=== PATIENT | female | born 1990 | race American Indian/Alaskan Native ===

== ENCOUNTER 2016-12-29 03:01 | Observation (INO) | payer OTHER ==
[2016-12-29] MEDS ORDERED: NACL 0.9% 1000 ML 1,000 ML IV ONE (04:05)
[2016-12-29 04:33] LABS: Basophils % (Auto) 0.6 % (0.0-1.8); Eosinophils % (Auto) 2.5 % (0.0-4.3); Hematocrit 29.6 % (30.3-42.9); Hemoglobin 9.6 gm/dl (10.1-14.3); Mean Corpuscular HGB Conc 32 % (30-34); Mean Corpuscular Hemoglobin 30 pg (28-32); Mean Corpuscular Volume 91 fl (79-97); Platelet Count 293 K/mm3 (140-440); Red Blood Count 3.26 M/mm3 (3.65-5.03); Red Cell Distribution Width 14.5 % (13.2-15.2); White Blood Count 11.5 K/mm3 (4.5-11.0)
[2016-12-29 04:42] LABS: Anion Gap 23 mmol/L; Blood Urea Nitrogen 2 mg/dL (7-17); Calcium 7.5 mg/dL (8.4-10.2); Carbon Dioxide 16 mmol/L (22-30); Chloride 101.7 mmol/L (98-107); Glucose 200 mg/dL (65-100); Potassium 3.3 mmol/L (3.6-5.0); Sodium 137 mmol/L (137-145)
--- NOTE | 2016-12-29 06:01 | Ultrasound Report ---
FINAL REPORT PROCEDURE: US OB TRANSVAGINAL WITH DOPPLER TECHNIQUE: Real-time transvaginal sonography of the uterus, placenta, amniotic fluid, adnexa, and fetus was performed with image documentation. Measurements were obtained to determine age/size. M-mode Doppler was used to document heartbeat. CPT 56740 HISTORY: vaginal bleeding/miscarriage, passing tissue COMPARISON: There are no older studies to compare. FINDINGS: Uterus measures 10.0 x 4.5 centimeters. There is no ultrasound evidence of an intrauterine or intrauterine gestational sac at this time. The endometrium is somewhat thick measuring 2.5 centimeters. This is nonspecific. It could be due to hemorrhage or endometrial reaction or retained products conception. The right ovary measures 2.2 x 1.3 x 1.9 centimeter. The left ovary measures 2 point by 1.8 x 1.4 centimeters. Both ovaries show no ultrasound abnormality IMPRESSION: 1. There is no ultrasound evidence of an intrauterine or intrauterine gestational sac at this time. The endometrium is thick measuring 2.5 centimeters. This is nonspecific but could be due to endometrial reaction or endometrial hemorrhage or retained products of conception. It should also be noted that if it is early enough, it is possible there could be a viable intrauterine that is too early to definitely detect by ultrasound. Therefore if the test remains persistently positive, follow-up ultrasound exams recommended to determine if there is a developing viable intrauterine 2. The ovaries demonstrate no ultrasound abnormality.
--- NOTE | 2016-12-29 06:08 | Ultrasound Report ---
FINAL REPORT PROCEDURE: US OB \T\lt; = 14 WEEKS FETUS TRANSABDOMINAL WITH DOPPLER TECHNIQUE: Real-time transabdominal sonography of the uterus, placenta, amniotic fluid, adnexa, and fetus was performed with image documentation. Measurements were obtained to determine age/size. M-mode Doppler was used to document heartbeat. CPT 87839 HISTORY: vaginal bleeding/miscarriage, passing tissue COMPARISON: No prior studies are available for comparison. FINDINGS: Uterus measures 10.0 x 4.5 centimeters. There is no ultrasound evidence of an intrauterine or intrauterine gestational sac at this time. The endometrium is somewhat thick measuring 2.5 centimeters. This is nonspecific. It could be due to hemorrhage or endometrial reaction or retained products conception. The right ovary measures 2.2 x 1.3 x 1.9 centimeter. The left ovary measures 2 point by 1.8 x 1.4 centimeters. Both ovaries show no ultrasound abnormality IMPRESSION: 1. There is no ultrasound evidence of an intrauterine or intrauterine gestational sac at this time. The endometrium is thick measuring 2.5 centimeters. This is nonspecific but could be due to endometrial reaction or endometrial hemorrhage or retained products of conception. It should also be noted that if it is early enough, it is possible there could be a viable intrauterine that is too early to definitely detect by ultrasound. Therefore if the test remains persistently positive, follow-up ultrasound exams recommended to determine if there is a developing viable intrauterine 2. The ovaries demonstrate no ultrasound abnormality.
[2016-12-29] MEDS ORDERED: NACL 0.9% 1000 ML 1,000 ML ONE (07:17)
[2016-12-29] MEDS ORDERED: NACL 0.9% 1000 ML IV ONE (07:19)
--- NOTE | 2016-12-29 07:22 | Emergency Department Report ---
HPI - General Chief Complaint: Vaginal Bleeding Time Seen by Provider: 12/29/16 06:12 - HPI HPI: Chief complaint: Vaginal bleeding and abdominal cramping HPI: Patient states she began bleeding last night prior to admission and used 6 pads in 3 hours patient complains of lightheadedness on standing but has not passed out. Patient states she bled last week and went to a clinic and had an ultrasound that showed demise at 7 weeks. This is patient's first . Mode of arrival: [private car] Source: [Patient] Began: Prior to admission Duration: Continuous Context: See above Quality: Cramping Severity: 4 out of 10 but currently has improved Improved with: Nothing Worsened with: Lightheadedness and is worse on standing Associated signs and symptoms: No nausea vomiting fever ED Past Medical Hx - Past Medical History Previous Medical History?: No - Surgical History Past Surgical History?: No - Social History Smoking Status: Never Smoker ED Review of Systems ROS: Stated complaint: VAGINAL BLEEDING/7WKS PREG Other details as noted in HPI ROS Constitutional: No fever ENT: No uri symptoms Cardiovascular: No chest pain Respiratory: No sob or cough GI: No nausea vomiting or diarrhea : No dysuria frequency or urgency, Skin: No rash Neuro: No focal weakness or numbness Psych: No depression Urban/lymph: No edema Physical Exam - Physical Exam Vital Signs: Vital Signs 12/29/16 03:16 Temperature 98.9 F Pulse Rate 111 H Respiratory 18 Rate Blood Pressure 129/98 [Right] O2 Sat by Pulse 100 Oximetry Physical Exam: GENERAL: The patient is well-developed well-nourished . HEENT: Normocephalic. Atraumatic. Extraocular motions are intact. Patient has moist mucous membranes. NECK: Supple. No meningitic signs are noted. There is no adenopathy noted. CHEST/LUNGS: Clear to auscultation. There is no respiratory distress noted. HEART/CARDIOVASCULAR: Regular. There is no tachycardia. There is no gallop rub or murmur. ABDOMEN: Abdomen is soft, nontender. Patient has normal bowel sounds. There is no abdominal distention. : PACs in cervical os removed and bleeding since seems to have slowed. SKIN: There is no rash. There is no edema. There is no diaphoresis. NEURO: The patient is awake, alert, and oriented. The patient is cooperative. The patient has no focal neurologic deficits. The patient has normal speech. MUSCULOSKELETAL: There is no tenderness or deformity. There is no limitation range of motion. There is no evidence of acute injury. ED Course Vital Signs 12/29/16 03:16 Temperature 98.9 F Pulse Rate 111 H Respiratory 18 Rate Blood Pressure 129/98 [Right] O2 Sat by Pulse 100 Oximetry - Reevaluation(s) Reevaluation #1: 12/29/16 06:[address] Knowles who states he will see the patient in the emergency department. 12/29/16 07:32 Dr. El here to see the patient. Requests 800 g of Cytotec rectally. ED Medical Decision Making - Lab Data Result diagrams: 12/29/16 04:06 12/29/16 04:06 Laboratory Tests 12/29/16 12/29/16 12/29/16 04:06 04:06 04:06 Calcium 7.5 L HCG, Quant 1204 H Blood Type B POSITIVE Ord Rhogam Gestat Weeks Rh pos Critical care attestation.: If time is entered above; I have spent that time in minutes in the direct care of this critically ill patient, excluding procedure time. ED Disposition Clinical Impression: Miscarriage, Retained placenta parts or membranes Disposition: OP ADMITTED IP TO THIS HOSP Is pt being admited?: Yes Does the pt Need Aspirin: No Condition: Fair Referrals: PRIMARY CARE, [Primary Care Provider] - 3-5 Days Time of Disposition: 07:18 (Admit to Dr. El)
[2016-12-29] MEDS ORDERED: CYTOTEC PO ONE ×2 (07:30→17:08)
--- NOTE | 2016-12-29 07:48 | Short Stay Summary ---
Short Stay Documentation Date of service: 12/29/16 Narrative H&P: C/O: Vaginal bleeding Asked to see this 26-year-old at unsure gestational age who presents with spontaneous . Essential history this patient with confirmed IUP seen at an outside clinic about a month ago. She was informed of demise and advised of imminent miscarriage. Since December 03, she has been cramping with spotting, she has not followed up with a physician. In the a.m. at about 2, she started to bleed heavily with dizziness. She was brought to the ED by her friend. She passed a large amount of clots but is unsure of tissue-like material. In the ED, her BP has been stable but she has been tachycardic with range 100's - 120's. Her hemoglobin and hematocrit is ~ 10/30 Transvaginal ultrasound obtained shows a uterus that's 10 cm in size. No EVIDENCE OF INTRAUTERINE OR INTRAUTERINE GESTATIONAL SAC. THE ENDOMETRIUM IS THICKENED MEASURING 2.5 CM. REGULATORY AFFAIRS ASSISTANT history unremarkable Medhx/Sughx:Unremarkable All:NKDA ROS: Patient just drank a glass of water On exam, she is alert and appears stable Clinical exam, she had grape-sized blood clot in the vaginal vault After I cleared of clot, no active bleeding noted from cervical os at this time A: SAB P: -Discussed options with the patient. As she is currently not actively bleeding feel conservative care is an option. Discussed admission for observation with serial hemoglobin and hematocrit and 800mcg Cytotec MT or suction D&C. As currently not an emergency, we will probably need to wait as she just drank water. -She has accepted Cytotec and observation for now - History Past Medical History: No medical history Past Surgical History: No surgical history Social history: single, full code, no smoking (Nicotine Patch), no alcohol abuse , no prescription drug abuse, no IV drug use - Allergies and Medications Current Medications: Allergies No Known Allergies Allergy (Verified 12/29/16 03:15) Active Medications Misoprostol (Cytotec) 800 mcg PO ONCE ONE Stop: 12/29/16 07:31 - Physical exam General appearance: no acute distress, obese Lungs: Clear to auscultation Heart: Normal S1, Normal S2 Gastrointestinal: normal, normoactive bowel sounds, no tenderness, no distended , no masses, no guarding Female Genitourinary: normal - Hospital course Hospital course: Admitted to the floor in stable condition. Courses of Cytotec were continued, her bleeding resolved. Her hemoglobin and hematocrit remained stable at ~7-8; she was asymptomatic and declined blood transfusion. - Disposition Condition at discharge: Good Disposition: DISCHARGED TO HOME OR SELFCARE - Discharge Diagnoses (1) Retained placenta parts or membranes Status: Acute (2) Anemia Status: Acute Qualifiers: Anemia type: A Iron deficiency anemia type: I Vitamin B12 deficiency anemia type: V Folate deficiency anemia type: F Bone marrow failure anemia type: B Hemolytic anemia type: H Other causes of anemia: acute posthemorrhagic Short Stay Discharge Plan Activity: advance as tolerated Weight Bearing Status: Weight Bear as Tolerated Diet: regular Follow up with: JAZMÍN TOLEDO MD [Primary Care Provider] - 3-5 Days SHAQUILLE GOODSON MD [Staff Physician] - 7 Days Prescriptions: Misoprostol [Cytotec] 400 mcg PO Q4H #6 tablet
[2016-12-29] MEDS ORDERED: CYTOTEC PR ONE ×2 (07:57→08:00)
[2016-12-29] MEDS ORDERED: SODIUM CHLORIDE FLUSH SYRINGE 10 ML IV NR (08:00)
[2016-12-29 08:22] LABS: Hematocrit 24.2 % (30.3-42.9); Hemoglobin 7.8 gm/dl (10.1-14.3)
--- NOTE | 2016-12-29 08:37 | Admit Criteria Form ---
Admission Criteria Documentation: OBSTETRIC AND GYNECOLOGIC DISEASE GRG Clinical Indications for Admission to Inpatient Care (Place 'X' for any and all applicable criteria): Hospital admission is needed for appropriate care of the patient because of ANY ONE of the following (1)(2)(3): [ ]I. Hemodynamic instability, as indicated by ALL of the following (1)(2)(3)( 4)(5): [ ]a) Vital signs or other findings not as expected for chronic patient condition or baseline [ ]b) Instability indicated by ANY ONE of the following: [ ]i) Hypotension [ ]ii) Symptomatic tachycardia unresponsive to treatment (eg, analgesia, fluids, sedation as indicated) [ ]iii) Inadequate perfusion indicated by ANY ONE of the following: [ ]A. Lactic acidosis (greater than 2 mmol/ L) [ ]B. New abnormal capillary refill ( greater than 3 seconds) [ ]C. Reduced urine output [ ]D. New altered mental status [ ]iv) Orthostatic vital sign changes unresponsive to treatment (eg, fluids) [ ]v) Multiple IV fluid boluses required to maintain adequate blood pressure or perfusion [ ]vi) IV inotropic or vasopressor medication required to maintain adequate blood pressure or perfusion [ ]II. Obstetric infection requiring hospitalization indicated by ANY ONE of the following(13)(14): [ ]a) Chorioamnionitis [ ]b) Endometritis (except mild endometritis) [ ]c) Pelvic abscess [ ]d) Peritonitis [ ]e) Septic pelvic thrombophlebitis [ ]III. Amniotic fluid or pulmonary embolism(4)(5)(6) [ ]IV. Suspected peritonitis or ectopic requiring monitoring beyond scope of 24 hours or observation care(7)(8) [ ]V. compromise requiring hospitalization indicated by ALL of the following(9)(10): [ ]a) compromise indicated by ANY ONE of the following(11): [ ]i) Abnormal heart rate monitoring [ ]ii) Abnormal contraction stress test [ ]iii) Abnormal biophysical profile [ ]iv) Abnormal Doppler flow in vessels (ie, Doppler velocimetry) (12) [ ]b) Persistence of compromise indicators during evaluation and observation monitoring [ ]. Ovarian hyperstimulation syndrome requiring hospitalization[A] indicated by ALL of the following(15): [ ]a) Recent ovarian stimulation with gonadotropins, or evidence on ultrasound of spontaneous emergence of large number of ovarian follicles [ ]b) Evidence of severe ovarian hyperstimulation syndrome indicated by ANY ONE of the following: [ ]i) Abdominal pain unresponsive to oral therapy [ ]ii) Acute respiratory distress syndrome [ ]iii) Electrolyte imbalance ( eg, hyponatremia, hyperkalemia) [ ]iv) Elevated liver enzymes [ ]v) Evidence of thromboembolism [ ]vi) Hemoconcentration (hematocrit greater than 45 % (0.45)) [ ]vii) Inability to maintain oral intake adequate to prevent hemoconcentration [ ]viii) Marked hypotension from baseline (eg, SBP 20 mmHg below patients usual pressure) [ ]ix) Oliguria or anuria [ ]x) Ovarian torsion [ ]xi) Pleural or pericardial effusion on x-ray or echocardiogram [ ]xii) Rapid increase in serum creatinine to greater than 1.2 mg/dL (106 micromoles/L) or creatinine clearance less than 50 mL/min/1.73m2 (0.84 mL/ sec/1.73m2) [ ]xiii) Ruptured ovarian cyst with hemorrhage [ ]xiv) Severe abdominal pain or peritoneal signs [ ]xv) Tense ascites that cannot be managed with paracentesis in outpatient setting [ ]VII.Pelvic infection requiring hospitalization indicated by ANY ONE of the following (16): [ ]a) Outpatient treatment has failed or is not appropriate (eg, inpatient monitoring required) [ ]b) Pelvic abscess [ ]c) Surgical emergency cannot be excluded (eg, rigid abdomen) [ ]d) Vomiting precluding outpatient and observation care management [X]VIII. loss complications requiring inpatient medical treatment indicated by ANY ONE of the following (4)(7)(9): [ ]a) Fever [ ]b) Peritonitis [ ]c) Sepsis [X]d) Severe abdominal pain [ ]IX. or patient requiring monitoring for severe heart failure, pulmonary disease, or other comorbid condition (eg, peripartum cardiomyopathy) (4)(17) [ ]X. patient with rupture of membranes requiring hospitalization indicated by ANY ONE of the following: [ ]a) Chorioamnionitis, cloudy amniotic fluid, or other evidence of infection [ ]b) compromise or other need for monitoring (11) [ ]c) Gestation longer than 23 weeks and ANY ONE of the following: [ ]i) Abnormal (noncephalic) presentation [ ]ii) Inadequate home environment (eg, home too far from hospital, unable to rapidly return to hospital) [ ]d) Temperature greater than 100.4 degrees F (38 degrees C)( oral) [ ]e) Threatened labor requiring monitoring beyond scope (eg, over 24 hours) of observation Care [ ] XI. complications, including severe lacerations, infections, or retained placenta (19) [ ] XII.Uterine bleeding with high-risk features indicated by ANY ONE of the following (4): [ ]a) Active major hemorrhage (eg, hemorrhage) [ ]b) Coagulopathy with active bleeding [ ]c) Gestational trophoblastic disease (eg, molar ) (20 ) [ ]d) (longer than 23 weeks) and ANY ONE of the following: [ ]i) Pain [ ]ii) Placental abruption, known or suspected [ ]iii) Placenta accrete, known or suspected(21) [ ]iv) Placenta previa, known or suspected [ ]v) Vasa previa [ ]e) Severe anemia [ ]XIII. Obstetric or Gynecologic Disease, condition or symptom for which ANY ONE of the following: [ ]a) Emergency and observation care have failed or are not considered appropriate ( Also use General Criteria: Observation Care Criteria as appropriate) [ ]b) Presence of a General Admission Criteria or Pediatric General Admission Criteria The original [facility] [employer] content created by [facility] has been revised. The portions of the content which have been revised are identified through the use of italic text or in bold, and [facility] has neither reviewed nor approved the modified material.All other unmodified content is copyright [facility]. Please see references footnoted in the original [facility] edition 2016 Admission Criteria Met: Yes
[2016-12-29] MEDS ORDERED: D5LR 1,000 ML IV SCH (09:00)
[2016-12-29] MEDS ORDERED: PHENERGAN PR PRN (09:00)
[2016-12-29] MEDS ORDERED: ZOFRAN IV PRN (09:00)
[2016-12-29 16:11] LABS: Hematocrit 23.5 % (30.3-42.9); Hemoglobin 7.5 gm/dl (10.1-14.3)
--- NOTE | 2016-12-29 19:25 | Event Note ---
Date: 12/29/16 Patient seen, and reviewed her hemoglobin findings with her. She claims to be asymptomatic and her bleeding has resolved largely, she wishes to remain for overnight observation. Repeat H&H in the a.m. and possible discharge
[2016-12-29] MEDS: CYTOTEC PO SCH (21:55)
[2016-12-30] MEDS: CYTOTEC PO SCH (02:34)
[2016-12-30 04:51] LABS: Hematocrit 23.5 % (30.3-42.9); Hemoglobin 7.7 gm/dl (10.1-14.3)
[2016-12-30 08:12] VITALS: BP 102/74
== END 2016-12-30 08:50 | disposition home or self-care (01) ==
LOC: ED 03:01 → OB 07:58
PROVIDERS: ADMIT Obstetrics & Gynecology Gynecology; ATTEND Obstetrics & Gynecology Gynecology
DX: O03.4 Incomplete spontaneous abortion without complication (principal); Z3A.01 Less than 8 weeks gestation of pregnancy
CPT/HCPCS: 36415; 76801; 76817; 80048; 84702; 85014; 85018; 85025; 86900; 86901; 88305; 96360; 96361; 99285; G0378; J7030; J7121

== ENCOUNTER 2018-05-30 18:40 | Emergency (ER) | payer OTHER ==
[2018-05-30] MEDS ORDERED: ASPIRIN PO ONE (19:16)
[2018-05-30 19:58] LABS: Bacteria,Urine 2+ /HPF (Negative); Bilirubin,Urine NEG (Negative); Blood,Urine NEG (Negative); Color,Urine Yellow (Yellow); Hyaline Casts,Urine 1 /LPF; Mucus,Urine FEW /HPF; Urobilinogen,Urine < 2.0 mg/dL (<2.0)
[2018-05-30] MEDS ORDERED: VITAMIN B-1 100 MG, FOLVITE 1 MG, INFUVITE 10 ML in NACL 0.9% 1000 ML 1,000 ML IV ONE (19:58)
--- NOTE | 2018-05-30 19:59 | Emergency Department Report ---
ED Altered Mental Status HPI - General Chief Complaint: Altered Mental Status Stated Complaint: ALTERED MENTAL STATUS Time Seen by Provider: 05/30/18 19:40 Source: patient, EMS Mode of arrival: Stretcher Limitations: No Limitations - History of Present Illness Initial Comments: Aleida baeza is a 27-year-old female that was brought to the emergency room for altered mental status and alcohol intoxication. Patient is A& O 4. Patient denies any physical complaints except for abrasions to right hand and right forearm due to punching her window and breaking the glass at her apartment. Patient denies chest pain shortness of breath. Patient denies head injury. Patient denies loss of consciousness. Patient denies drug use. MD Complaint: altered mental status, intoxication -: Sudden Severity: moderate Consistency of Symptoms: waxing and waning Context: alcohol abuse Associated Symptoms: denies: chest pain, cough, diaphoresis, fever/chills, headaches, malaise, nausea/vomiting, rash, seizure, shortness of breath, syncope , foul smelling urine, difficulty walking, diarrhea, incontinence - Related Data Previous Rx's Medication Instructions Recorded Last Taken Type Misoprostol [Cytotec] 400 mcg PO Q4H #6 tablet 12/29/16 Unknown Rx Multivitamin with Iron 1 each PO DAILY #30 tablet 12/30/16 Unknown Rx [Multivitamins with Iron] Allergies Allergy/AdvReac Type Severity Reaction Status Date / Time No Known Allergies Allergy Verified 12/29/16 03:15 ED Review of Systems ROS: Stated complaint: ALTERED MENTAL STATUS Other details as noted in HPI Constitutional: denies: chills, fever Eyes: denies: eye pain, eye discharge, vision change ENT: denies: ear pain, throat pain Respiratory: denies: cough, shortness of breath, wheezing Cardiovascular: denies: chest pain, palpitations Endocrine: no symptoms reported Gastrointestinal: denies: abdominal pain, nausea, diarrhea Genitourinary: denies: urgency, dysuria, discharge Musculoskeletal: denies: back pain, joint swelling, arthralgia Skin: denies: rash, lesions Neurological: denies: headache, weakness, paresthesias Psychiatric: denies: anxiety, depression Hematological/Lymphatic: denies: easy bleeding, easy bruising ED Past Medical Hx - Past Medical History Previous Medical History?: Yes Hx Hypertension: Yes (2016) - Surgical History Past Surgical History?: No - Family History Family history: hypertension - Social History Smoking Status: Current Every Day Smoker Substance Use Type: Alcohol - Medications Home Medications: Home Medications Medication Instructions Recorded Confirmed Last Taken Type Misoprostol [Cytotec] 400 mcg PO Q4H #6 tablet 12/29/16 Unknown Rx Multivitamin with Iron 1 each PO DAILY #30 tablet 12/30/16 Unknown Rx [Multivitamins with Iron] ED Physical Exam - General Limitations: No Limitations General appearance: alert, in no apparent distress - Head Head exam: Present: atraumatic, normocephalic - Eye Eye exam: Present: normal appearance - ENT ENT exam: Present: mucous membranes moist - Neck Neck exam: Present: normal inspection - Respiratory Respiratory exam: Present: normal lung sounds bilaterally. Absent: respiratory distress - Cardiovascular Cardiovascular Exam: Present: regular rate, normal rhythm. Absent: systolic murmur, diastolic murmur, rubs, gallop - GI/Abdominal GI/Abdominal exam: Present: soft, normal bowel sounds - Extremities Exam Extremities exam: Present: normal inspection - Back Exam Back exam: Present: normal inspection - Neurological Exam Neurological exam: Present: alert, oriented X3 - Psychiatric Psychiatric exam: Present: normal affect, normal mood - Skin Skin exam: Present: warm, dry, intact, normal color. Absent: rash - Assessment Assessment Interval: Baseline - Level of Consciousness 1a. Level of Consciousness: alert - LOC Questions 1b. LOC Questions: answers correctly - LOC Command 1c. LOC Commands: performs tasks correctly - Best Gaze 2. Best Gaze: normal - Visual 3. Visual: no visual loss - Facial Palsy 4. Facial Palsy: normal symmetrical movement - Motor Arm 5b. Motor Arm Right: no drift 5a. Motor Arm Left: no drift - Motor Leg 6a. Motor Leg Left: no drift 6b. Motor Leg Right: no drift - Limb Ataxia 7. Limb Ataxia: absent - Sensory 8. Sensory: normal - Best Language 9. Best Language: no aphasia - Dysarthria 10. Dysarthria: normal - Extinction and Inattention 11. Extinction/Inattention: no abnormality - Scoring Total Score: 0 Stroke Severity: No Stroke Symptoms ED Course Vital Signs 05/30/18 05/30/18 05/30/18 19:00 19:09 19:15 Temperature 99.5 F Pulse Rate 156 H 142 H Respiratory 16 26 H Rate Blood Pressure 179/104 170/110 179/104 O2 Sat by Pulse 98 100 95 Oximetry 05/30/18 05/30/18 05/30/18 19:30 19:34 19:49 Temperature Pulse Rate 150 H 152 H Respiratory 16 20 Rate Blood Pressure 163/112 O2 Sat by Pulse 95 Oximetry 05/30/18 05/30/18 05/30/18 20:00 20:31 21:13 Temperature Pulse Rate 146 H 148 H 150 H Respiratory 23 24 29 H Rate Blood Pressure 157/115 157/115 157/115 O2 Sat by Pulse Oximetry 05/30/18 05/30/18 05/30/18 21:30 22:00 22:30 Temperature 99.2 F Pulse Rate 153 H 141 H 138 H Respiratory 32 H 21 28 H Rate Blood Pressure 164/97 166/101 150/97 O2 Sat by Pulse Oximetry 05/30/18 05/30/18 05/30/18 23:00 23:30 23:35 Temperature Pulse Rate 132 H 127 H 139 H Respiratory 22 26 H 28 H Rate Blood Pressure 163/100 156/103 153/107 O2 Sat by Pulse Oximetry 05/31/18 05/31/18 05/31/18 00:01 00:31 00:54 Temperature Pulse Rate 130 H 140 H 128 H Respiratory 17 22 Rate Blood Pressure 175/106 175/106 158/98 O2 Sat by Pulse Oximetry - Reevaluation(s) Reevaluation #1: We'll monitor patient. Labs are pending 05/30/18 19:57 Reevaluation #2: Patient complains of anxiety. Patient denies chest pain shortness of breath palpitations. Patient states she's been feeling very nervous and would like something for 05/30/18 22:31 Reevaluation #3: Since heart rate is better. Patient is stable and ready for discharge. Alcohol has improved. Patient is a and O 4. No slurred speech noted. Patient answers all questions appropriately. 05/31/18 01:47 - Lab Data Result diagrams: 05/30/18 19:53 05/30/18 19:53 Lab Results 05/30/18 05/30/18 05/30/18 Range/Units 19:49 19:49 19:53 WBC 9.1 (4.5-11.0) K/mm3 RBC 4.72 (3.65-5.03) M/mm3 Hgb 13.8 (10.1-14.3) gm/dl Hct 41.5 (30.3-42.9) % MCV 88 (79-97) fl MCH 29 (28-32) pg MCHC 33 (30-34) % RDW 16.1 H (13.2-15.2) % Plt Count 459 H (140-440) K/mm3 Lymph % (Auto) 26.9 (13.4-35.0) % [place] % (Auto) 6.9 (0.0-7.3) % Eos % (Auto) 0.7 (0.0-4.3) % Baso % (Auto) 0.5 (0.0-1.8) % Lymph # 2.5 (1.2-5.4) K/mm3 [place] # 0.6 (0.0-0.8) K/mm3 Eos # 0.1 (0.0-0.4) K/mm3 Baso # 0.0 (0.0-0.1) K/mm3 Seg Neutrophils % 65.0 (40.0-70.0) % Seg Neutrophils # 5.9 (1.8-7.7) K/mm3 Sodium (137-145) mmol/L Potassium (3.6-5.0) mmol/L Chloride (98-107) mmol/L Carbon Dioxide (22-30) mmol/L Anion Gap mmol/L BUN (7-17) mg/dL Creatinine (0.7-1.2) mg/dL Estimated GFR ml/min BUN/Creatinine Ratio % Glucose (65-100) mg/dL Calcium (8.4-10.2) mg/dL Troponin T (0.00-0.029) ng/mL HCG, Qual (Negative) Urine Color Yellow (Yellow) Urine Turbidity Clear (Clear) Urine pH 6.0 (5.0-7.0) Ur Specific [place] 1.012 (1.003-1.030) Urine Protein 30 mg/dl (Negative) mg/dL Urine Glucose (UA) Neg (Negative) mg/dL Urine Ketones Neg (Negative) mg/dL Urine Blood Neg (Negative) Urine Nitrite Pos (Negative) Urine Bilirubin Neg (Negative) Urine Urobilinogen < 2.0 (<2.0) mg/dL Ur Leukocyte Esterase Sm (Negative) Urine WBC (Auto) 20.0 H (0.0-6.0) /HPF Urine RBC (Auto) 4.0 (0.0-6.0) /HPF U Epithel Cells (Auto) 10.0 (0-13.0) /HPF Urine Bacteria (Auto) 2+ (Negative) /HPF Hyaline Casts 1 /LPF Urine Mucus Few /HPF Urine Opiates Screen Presumptive negative Urine Methadone Screen Presumptive negative Ur Barbiturates Screen Presumptive negative Ur Phencyclidine Scrn Presumptive negative Ur Amphetamines Screen Presumptive negative U Benzodiazepines Scrn Presumptive negative Urine Cocaine Screen Presumptive negative U Marijuana (THC) Screen Presumptive negative Drugs of Abuse Note Disclamer Plasma/Serum Alcohol (0-0.07) % 05/30/18 05/30/18 05/30/18 Range/Units 19:53 19:53 19:53 WBC (4.5-11.0) K/mm3 RBC (3.65-5.03) M/mm3 Hgb (10.1-14.3) gm/dl Hct (30.3-42.9) % MCV (79-97) fl MCH (28-32) pg MCHC (30-34) % RDW (13.2-15.2) % Plt Count (140-440) K/mm3 Lymph % (Auto) (13.4-35.0) % [place] % (Auto) (0.0-7.3) % Eos % (Auto) (0.0-4.3) % Baso % (Auto) (0.0-1.8) % Lymph # (1.2-5.4) K/mm3 [place] # (0.0-0.8) K/mm3 Eos # (0.0-0.4) K/mm3 Baso # (0.0-0.1) K/mm3 Seg Neutrophils % (40.0-70.0) % Seg Neutrophils # (1.8-7.7) K/mm3 Sodium 141 (137-145) mmol/L Potassium 3.7 (3.6-5.0) mmol/L Chloride 101.9 (98-107) mmol/L Carbon Dioxide 22 (22-30) mmol/L Anion Gap 21 mmol/L BUN 3 L (7-17) mg/dL Creatinine 0.8 (0.7-1.2) mg/dL Estimated GFR > 60 ml/min BUN/Creatinine Ratio 4 % Glucose 129 H (65-100) mg/dL Calcium 8.9 (8.4-10.2) mg/dL Troponin T < 0.010 (0.00-0.029) ng/mL HCG, Qual Negative (Negative) Urine Color (Yellow) Urine Turbidity (Clear) Urine pH (5.0-7.0) Ur Specific [place] (1.003-1.030) Urine Protein (Negative) mg/dL Urine Glucose (UA) (Negative) mg/dL Urine Ketones (Negative) mg/dL Urine Blood (Negative) Urine Nitrite (Negative) Urine Bilirubin (Negative) Urine Urobilinogen (<2.0) mg/dL Ur Leukocyte Esterase (Negative) Urine WBC (Auto) (0.0-6.0) /HPF Urine RBC (Auto) (0.0-6.0) /HPF U Epithel Cells (Auto) (0-13.0) /HPF Urine Bacteria (Auto) (Negative) /HPF Hyaline Casts /LPF Urine Mucus /HPF Urine Opiates Screen Urine Methadone Screen Ur Barbiturates Screen Ur Phencyclidine Scrn Ur Amphetamines Screen U Benzodiazepines Scrn Urine Cocaine Screen U Marijuana (THC) Screen Drugs of Abuse Note Plasma/Serum Alcohol 0.16 H (0-0.07) % 05/30/18 05/30/18 Range/Units 23:56 23:56 WBC (4.5-11.0) K/mm3 RBC (3.65-5.03) M/mm3 Hgb (10.1-14.3) gm/dl Hct (30.3-42.9) % MCV (79-97) fl MCH (28-32) pg MCHC (30-34) % RDW (13.2-15.2) % Plt Count (140-440) K/mm3 Lymph % (Auto) (13.4-35.0) % [place] % (Auto) (0.0-7.3) % Eos % (Auto) (0.0-4.3) % Baso % (Auto) (0.0-1.8) % Lymph # (1.2-5.4) K/mm3 [place] # (0.0-0.8) K/mm3 Eos # (0.0-0.4) K/mm3 Baso # (0.0-0.1) K/mm3 Seg Neutrophils % (40.0-70.0) % Seg Neutrophils # (1.8-7.7) K/mm3 Sodium (137-145) mmol/L Potassium (3.6-5.0) mmol/L Chloride (98-107) mmol/L Carbon Dioxide (22-30) mmol/L Anion Gap mmol/L BUN (7-17) mg/dL Creatinine (0.7-1.2) mg/dL Estimated GFR ml/min BUN/Creatinine Ratio % Glucose (65-100) mg/dL Calcium (8.4-10.2) mg/dL Troponin T < 0.010 (0.00-0.029) ng/mL HCG, Qual (Negative) Urine Color (Yellow) Urine Turbidity (Clear) Urine pH (5.0-7.0) Ur Specific [place] (1.003-1.030) Urine Protein (Negative) mg/dL Urine Glucose (UA) (Negative) mg/dL Urine Ketones (Negative) mg/dL Urine Blood (Negative) Urine Nitrite (Negative) Urine Bilirubin (Negative) Urine Urobilinogen (<2.0) mg/dL Ur Leukocyte Esterase (Negative) Urine WBC (Auto) (0.0-6.0) /HPF Urine RBC (Auto) (0.0-6.0) /HPF U Epithel Cells (Auto) (0-13.0) /HPF Urine Bacteria (Auto) (Negative) /HPF Hyaline Casts /LPF Urine Mucus /HPF Urine Opiates Screen Urine Methadone Screen Ur Barbiturates Screen Ur Phencyclidine Scrn Ur Amphetamines Screen U Benzodiazepines Scrn Urine Cocaine Screen U Marijuana (THC) Screen Drugs of Abuse Note Plasma/Serum Alcohol 0.05 (0-0.07) % - EKG Data -: EKG Interpreted by Mo EKG shows normal: sinus rhythm, axis, intervals, QRS complexes Rate: tachycardia - Medical Decision Making She is a 27-year-old female presents emergency room with acute alcohol intoxication and altered mental status. Patient is oriented at this time. Patient was given fluids and a banana bag and has improved clinically. Patient' s heart rate has improved with treatment. Patient's anxiety has resolved with treatment. Patient to be discharged home. Patient encouraged to follow up with primary care in 2-3 days. With respect to the patient's superficial abrasions, Wound care discussed with patient and Patient to monitor for signs of infection. - Differential Diagnosis anxiety. Acute alcohol intoxication. Other drug abuse. Abrasion. Critical care attestation.: If time is entered above; I have spent that time in minutes in the direct care of this critically ill patient, excluding procedure time. ED Disposition Clinical Impression: Anxiety Altered mental state Qualifiers: Altered mental status type: unspecified Qualified Code(s): R41.82 - Altered mental status, unspecified Acute alcohol intoxication Qualifiers: Complication of substance-induced condition: with unspecified complication Qualified Code(s): F10.929 - Alcohol use, unspecified with intoxication, unspecified Abrasion forearm Qualifiers: Encounter type: initial encounter Laterality: right Qualified Code(s): S50.811A - Abrasion of right forearm, initial encounter Disposition: TO HOME OR SELFCARE Is pt being admited?: No Does the pt Need Aspirin: No Condition: Stable Instructions: Alcohol Withdrawal (ED), Anxiety (ED), Alcohol Intoxication (ED) , Abrasion (ED) Additional Instructions: He did follow up primary care in 2-3 days. Patient to increase water. Patient to rest. Patient to avoid or decrease alcohol use. Patient to return to ER if condition worsens. Referrals: PRIMARY CARE,MD [Primary Care Provider] - 2-3 Days Time of Disposition: 01:53
[2018-05-30 20:14] LABS: Amphetamine Screen,Urine PRESUMPTIVE NEGATIVE; Benzodiazepines Screen,Urine PRESUMPTIVE NEGATIVE; Cannabinoid Screen,Urine PRESUMPTIVE NEGATIVE; Cocaine Screen,Urine PRESUMPTIVE NEGATIVE; Methadone Screen,Urine PRESUMPTIVE NEGATIVE; Opiate Screen,Urine PRESUMPTIVE NEGATIVE
[2018-05-30 20:25] LABS: BUN/Creatinine Ratio 4; Blood Urea Nitrogen 3 mg/dL (7-17); Calcium 8.9 mg/dL (8.4-10.2); Hemolysis Index 3
[2018-05-30 20:34] LABS: Basophils % (Auto) 0.5 % (0.0-1.8); Eosinophils # (Auto) 0.1 K/mm3 (0.0-0.4); Eosinophils % (Auto) 0.7 % (0.0-4.3); Hematocrit 41.5 % (30.3-42.9); Hemoglobin 13.8 gm/dl (10.1-14.3); Lymphocytes # (Auto) 2.5 K/mm3 (1.2-5.4); Lymphocytes % (Auto) 26.9 % (13.4-35.0); Mean Corpuscular HGB Conc 33 % (30-34); Mean Corpuscular Hemoglobin 29 pg (28-32); Mean Corpuscular Volume 88 fl (79-97); Monocytes # (Auto) 0.6 K/mm3 (0.0-0.8); Monocytes % (Auto) 6.9 % (0.0-7.3); Platelet Count 459 K/mm3 (140-440); Red Blood Count 4.72 M/mm3 (3.65-5.03); Red Cell Distribution Width 16.1 % (13.2-15.2)
[2018-05-30] MEDS ORDERED: ATIVAN ONE (22:27)
[2018-05-30] MEDS ORDERED: ATIVAN IV ONE (22:31)
[2018-05-30] MEDS ORDERED: NACL 0.9% 1000 ML 1,000 ML IV ONE (23:31)
[2018-05-31] MEDS ORDERED: LOPRESSOR PO ONE (00:44)
[2018-05-31 01:58] VITALS: BP 148/80
== END 2018-05-31 02:08 | disposition home or self-care (01) ==
LOC: ED 18:40
DX: F31.9 Bipolar disorder, unspecified (principal); F10.929 Alcohol use, unspecified with intoxication, unspecified; S50.811A Abrasion of right forearm, initial encounter; I10 Essential (primary) hypertension; F17.200 Nicotine dependence, unspecified, uncomplicated; W22.09XA Striking against other stationary object, initial encounter; Y93.89 Activity, other specified; Y92.89 Other specified places as the place of occurrence of the external cause; Y99.8 Other external cause status
CPT/HCPCS: 36415; 80048; 80307; 81001; 84484; 84703; 85025; 93005; 93010; 96365; 96366; 96375; 99284; G0480; J2060; J3411; J7030; 80320

== ENCOUNTER 2019-02-24 06:30 | Emergency (ER) | payer SELFPAY ==
--- NOTE | 2019-02-24 07:21 | XRay Report ---
PROCEDURE: XR CHEST 1V AP TECHNIQUE: Chest radiograph single view. HISTORY: Chest Pain COMPARISONS: None . FINDINGS: Heart: Normal. Mediastinum/Vessels: Normal. Lungs/Pleural space: Normal. Bony thorax: No acute osseous abnormality. Life support devices: None. IMPRESSION: No acute cardiopulmonary abnormality. This document is electronically signed by Colin Orozco MD., February 24 2019 07:18:43 AM ET
--- NOTE | 2019-02-24 07:36 | Emergency Department Report ---
ED Chest Pain HPI - General Chief Complaint: Chest Pain Stated Complaint: CHEST PAINS HEART PALPITATIONS Time Seen by Provider: 02/24/19 07:22 Source: patient Mode of arrival: Ambulatory Limitations: No Limitations - History of Present Illness Initial Comments: Pt is a 28 yo female who presents to the ED with c/o substernal CP that began three days ago. She describes the pain as an aching. She states she has palpitations. The patient states after she takes deep breaths her pain and palpitations resolve. Pt has no sx currently. The patient denies any radiation of the pain. She has associated nausea but no emesis. She denies any SOB. She denies any recent long car or plane ride, recent surgery, recent immobilizations, LE edema, or OCP use. Pt denies any personal hx of cardiac problems. Pt has previously been evaluated in the ED for these complaints in the past and was diagnosed with anxiety. Pt states she does not take anything for anxiety. The patient is a daily smoker and a daily drinker. Pt denies any drug use. The patient states three years ago she was diagnosed with HTN, pt is supposed to be taking BP medications but is not taking anything, pt does not know what she is supposed to be taking. Severity scale (0 -10): 4 - Related Data Previous Rx's Medication Instructions Recorded Last Taken Type miSOPROStol [Cytotec] 400 mcg PO Q4H #6 tablet 12/29/16 Unknown Rx Multivitamin with Iron 1 each PO DAILY #30 tablet 12/30/16 Unknown Rx [Multivitamins with Iron] Allergies Allergy/AdvReac Type Severity Reaction Status Date / Time No Known Allergies Allergy Verified 12/29/16 03:15 Heart Score - HEART Score History: Slightly suspicious EKG: Normal Age: < 45 Risk factors: 1-2 risk factors Troponin: < normal limit (did not test troponin) HEART Score: 1 ED Review of Systems ROS: Stated complaint: CHEST PAINS HEART PALPITATIONS Other details as noted in HPI Comment: All other systems reviewed and negative ED Past Medical Hx - Past Medical History Previous Medical History?: Yes Hx Hypertension: Yes (2015) - Surgical History Past Surgical History?: No - Social History Smoking Status: Current Every Day Smoker Substance Use Type: Alcohol - Medications Home Medications: Home Medications Medication Instructions Recorded Confirmed Last Taken Type miSOPROStol [Cytotec] 400 mcg PO Q4H #6 tablet 12/29/16 Unknown Rx Multivitamin with Iron 1 each PO DAILY #30 tablet 12/30/16 Unknown Rx [Multivitamins with Iron] ED Physical Exam - General Limitations: No Limitations General appearance: alert, in no apparent distress - Head Head exam: Present: atraumatic, normocephalic - Eye Eye exam: Present: normal appearance - ENT ENT exam: Present: mucous membranes moist - Respiratory Respiratory exam: Present: normal lung sounds bilaterally. Absent: respiratory distress, wheezes, rales, rhonchi, stridor, chest wall tenderness, accessory muscle use, decreased breath sounds, prolonged expiratory - Cardiovascular Cardiovascular Exam: Present: regular rate, normal rhythm, normal heart sounds. Absent: systolic murmur, diastolic murmur, rubs, gallop, clicks, JVD - Extremities Exam Extremities exam: Absent: pedal edema - Neurological Exam Neurological exam: Present: alert, oriented X3 - Psychiatric Psychiatric exam: Present: normal affect, normal mood - Skin Skin exam: Present: warm, dry, intact ED Course Vital Signs 02/24/19 02/24/19 06:36 08:38 Temperature 98.5 F 98.8 F Pulse Rate 89 78 Respiratory 20 16 Rate Blood Pressure 141/112 Blood Pressure 129/94 [Left] O2 Sat by Pulse 100 99 Oximetry LACEY score - Lacey Score Age > 65: (0) No Aspirin use within the Past 7 Days: (0) No 3 or more CAD Risk Factors: (0) No 2 or more Angina events in past 24 hrs: (0) No Known CAD with more than 50% Stenosis: (0) No Elevated Cardiac Markers: (0) No ST Deviation Greater than 0.5mm: (0) No LACEY Score: 0 ED Medical Decision Making - Lab Data Result diagrams: 02/24/19 07:44 Lab Results 02/24/19 02/24/19 02/24/19 Range/Units 07:44 07:59 07:59 Sodium 139 (137-145) mmol/L Potassium 4.3 (3.6-5.0) mmol/L Chloride 105.3 (98-107) mmol/L Carbon Dioxide 21 L (22-30) mmol/L Anion Gap 17 mmol/L BUN 9 (7-17) mg/dL Creatinine 0.7 (0.7-1.2) mg/dL Estimated GFR > 60 ml/min BUN/Creatinine Ratio 13 % Glucose 141 H (65-100) mg/dL Calcium 9.0 (8.4-10.2) mg/dL Phosphorus 3.80 (2.5-4.5) mg/dL Magnesium 1.80 (1.7-2.3) mg/dL Urine Color Straw (Yellow) Urine Turbidity Clear (Clear) Urine pH 7.0 (5.0-7.0) Ur Specific [place] 1.006 (1.003-1.030) Urine Protein <15 mg/dl (Negative) mg/dL Urine Glucose (UA) Neg (Negative) mg/dL Urine Ketones Neg (Negative) mg/dL Urine Blood Mod (Negative) Urine Nitrite Neg (Negative) Urine Bilirubin Neg (Negative) Urine Urobilinogen < 2.0 (<2.0) mg/dL Ur Leukocyte Esterase Neg (Negative) Urine WBC (Auto) 1.0 (0.0-6.0) /HPF Urine RBC (Auto) 1.0 (0.0-6.0) /HPF U Epithel Cells (Auto) 2.0 (0-13.0) /HPF Urine HCG, Qual Negative (Negative) Urine Opiates Screen Presumptive negative Urine Methadone Screen Presumptive negative Ur Barbiturates Screen Presumptive negative Ur Phencyclidine Scrn Presumptive negative Ur Amphetamines Screen Presumptive negative U Benzodiazepines Scrn Presumptive negative Urine Cocaine Screen Presumptive negative U Marijuana (THC) Screen Presumptive negative Drugs of Abuse Note Disclamer Vital Signs 02/24/19 02/24/19 06:36 08:38 Temperature 98.5 F 98.8 F Pulse Rate 89 78 Respiratory 20 16 Rate Blood Pressure 141/112 Blood Pressure 129/94 [Left] O2 Sat by Pulse 100 99 Oximetry - EKG Data -: EKG Interpreted by [place] EKG shows normal: sinus rhythm, axis, intervals, QRS complexes, ST-T waves Rate: normal - Radiology Data Radiology results: report reviewed PROCEDURE: XR CHEST 1V AP TECHNIQUE: Chest radiograph single view. HISTORY: Chest Pain COMPARISONS: None . FINDINGS: Heart: Normal. Mediastinum/Vessels: Normal. Lungs/Pleural space: Normal. Bony thorax: No acute osseous abnormality. Life support devices: None. IMPRESSION: No acute cardiopulmonary abnormality. This document is electronically signed by Colin Orozco MD., February 24 2019 07:18:43 AM ET - Medical Decision Making Pt is a 28 yo female who presents to the ED with c/o substernal CP that began three days ago. She describes the pain as an aching. She states she has palpitations. The patient states after she takes deep breaths her pain and palpitations resolve. Pt has no sx currently. The patient denies any radiation of the pain. She has associated nausea but no emesis. She denies any SOB. She denies any recent long car or plane ride, recent surgery, recent immobilizations, LE edema, or OCP use. Pt denies any personal hx of cardiac problems. Pt has previously been evaluated in the ED for these complaints in the past and was diagnosed with anxiety. Pt states she does not take anything for anxiety. The patient is a daily smoker and a daily drinker. Pt denies any drug use. The patient states three years ago she was diagnosed with HTN, pt is supposed to be taking BP medications but is not taking anything, pt does not know what she is supposed to be taking. CXR with no acute process. EKG within normal limits. Labs with elevated blood glucose at 141 otherwise normal. UA is normal, urine preg is negative. Advised pt to follow up with a primary care doctor in the next 2-3 days to discuss elevated blood pressure, elevated blood glucose, and palpitations. Repeat vitals with blood pressure significantly improved. Patient given list of community resources. Discussed with pt to return to the emergency room for any new or worsening symptoms. Counseled pt on smoking and alcohol cessation. LACEY score is negative, EKG is normal, electrolytes are normal, no cardiac hx, CXR is normal, CP unlikely to be cardiac related. - Differential Diagnosis GERD, Anxiety, Chest pain, PTX, Alcohol abuse, Electrolyte abnormality Critical care attestation.: If time is entered above; I have spent that time in minutes in the direct care of this critically ill patient, excluding procedure time. ED Disposition Clinical Impression: Palpitations, Elevated blood pressure reading, Alcohol use, Current nicotine use Chest pain Qualifiers: Chest pain type: unspecified Qualified Code(s): R07.9 - Chest pain, unspecified Disposition: DC-01 TO HOME OR SELFCARE Is pt being admited?: No Does the pt Need Aspirin: No Condition: Stable Instructions: Chest Pain (ED), How to Stop Smoking (ED), Abuse of Alcohol (ED) Additional Instructions: Please follow up with a primary care doctor in the next 2-3 days. Please discuss with your primary care doctor the elevation in your blood pressure, the elevation in your blood glucose, and your palpitations. Please consider to stop nicotine use and alcohol use. Return to the emergency room for any new or worsening symptoms. Referrals: [facility] [Other] - 2-3 Days Time of Disposition: 08:41 Print Language: TURKMEN
[2019-02-24 08:14] LABS: Bilirubin,Urine NEG (Negative); Blood,Urine MOD (Negative); Color,Urine Straw (Yellow); Protein,Urine <15 mg/dL mg/dL (Negative); Urobilinogen,Urine < 2.0 mg/dL (<2.0)
[2019-02-24 08:18] LABS: BUN/Creatinine Ratio 13; Blood Urea Nitrogen 9 mg/dL (7-17); Hemolysis Index 17
[2019-02-24 08:33] LABS: HCG Qualitative,Urine Negative (Negative)
[2019-02-24 08:35] LABS: Amphetamine Screen,Urine PRESUMPTIVE NEGATIVE; Benzodiazepines Screen,Urine PRESUMPTIVE NEGATIVE; Cannabinoid Screen,Urine PRESUMPTIVE NEGATIVE; Cocaine Screen,Urine PRESUMPTIVE NEGATIVE; Methadone Screen,Urine PRESUMPTIVE NEGATIVE; Opiate Screen,Urine PRESUMPTIVE NEGATIVE
[2019-02-24 08:40] VITALS: BP 129/94
== END 2019-02-24 08:48 | disposition home or self-care (01) ==
LOC: ED 06:30
DX: R07.2 Precordial pain (principal); R00.2 Palpitations; I10 Essential (primary) hypertension; F17.200 Nicotine dependence, unspecified, uncomplicated
CPT/HCPCS: 36415; 71045; 80048; 80307; 81001; 81025; 83735; 84100; 93005; 93010; 99284